=== PATIENT | female | born 1995 | race Two or more races ===

== ENCOUNTER 2019-10-08 13:56 | Observation (INO) ==
[2019-10-08] MEDS ORDERED: ONDANSETRON INJ 2 MG/ML 2 ML VIAL IV STA (14:32)
--- NOTE | 2019-10-08 14:36 | Emergency Department Note ---
History of Present Illness General Chief complaint: Abdominal Pain Stated complaint: ABD PAIN Time Seen by Provider: 10/08/19 14:28 History of Present Illness Maximum Pain Intensity: 6 The patient is a 24-year-old female who presented to the emergency department for an evaluation of abdominal pain. The patient started having abdominal pain earlier in the day. She states that she thought she needed to eat so she had a banana. She started having nausea and vomiting. The patient complains of diffuse abdominal pain which is worse on the right. She went to [facility] but was then sent to the emergency department for further evaluation for possible appendicitis. The patient did not take medication for pain prior to arrival. She denies having any back pain. She denies having any dysuria or frequency. Her last menstrual period was 3 weeks ago. Patient states that that was normal time for her. She denies having any chest pain or fever. She has no diarrhea. She denies having any sick contacts or travel recently. Home Medications Home Medications Medication Instructions Recorded Confirmed Type drospirenone-ethinyl estradiol 1 tab PO DAILY 10/08/19 10/08/19 History [Hari (28)] Allergies Allergy/AdvReac Type Severity Reaction Status Date / Time No Known Allergies Allergy Unverified 10/08/19 15:50 Past Med/Surg History Medical History No significant past medical history Surgical History No history of previous surgery Social History Feels Safe at Home: Yes Smoking Status: Never smoker Do You Dip or Chew Tobacco: No ; Hx Alcohol Use: Yes Hx Substance Use: No Review of Systems See HPI for pertinent positives & negatives. and A total of 10 systems reviewed and were otherwise negative Physical Exam Vital Signs Vital Signs - 24 hr 10/08/19 14:13 10/08/19 14:32 10/08/19 15:12 Temperature 36.7 C Temperature Source Oral Pulse Rate 85 91 H Pulse Rate [Apical] Pulse Rate from SpO2 Sensor 89 Respiratory Rate 20 15 Respiratory Effort / Characteristics Respiratory Depth Respiratory Pattern Blood Pressure 112/69 118/83 Blood Pressure [Left Arm] Blood Pressure Mean 83 89 Blood Pressure Mean [Left Arm] Pulse Oximetry 100 100 Oxygen Delivery Method Room Air Room Air Sepsis Recent Fever Within 48 Hours No Sepsis New/Unexplained Change in Mental Status No Sepsis Action Taken by Nursing No Action Required 10/08/19 15:30 10/08/19 16:00 10/08/19 16:11 Temperature Temperature Source Pulse Rate 94 H 108 H Pulse Rate [Apical] 101 H Pulse Rate from SpO2 Sensor 94 H 109 H Respiratory Rate 18 14 18 Respiratory Effort / Characteristics Non-Labored Spontaneous Respiratory Depth Normal Respiratory Pattern Regular Blood Pressure 113/72 120/68 Blood Pressure [Left Arm] 120/68 Blood Pressure Mean 89 91 Blood Pressure Mean [Left Arm] 85 Pulse Oximetry 100 100 99 Oxygen Delivery Method Room Air Room Air Sepsis Recent Fever Within 48 Hours Sepsis New/Unexplained Change in Mental Status Sepsis Action Taken by Nursing 10/08/19 16:30 10/08/19 17:00 10/08/19 17:23 Temperature Temperature Source Pulse Rate 92 H 99 H 96 H Pulse Rate [Apical] Pulse Rate from SpO2 Sensor 91 H 100 H 102 H Respiratory Rate 20 21 22 Respiratory Effort / Characteristics Respiratory Depth Respiratory Pattern Blood Pressure 125/83 104/72 127/71 Blood Pressure [Left Arm] Blood Pressure Mean 95 81 81 Blood Pressure Mean [Left Arm] Pulse Oximetry 100 99 100 Oxygen Delivery Method Room Air Room Air Room Air Sepsis Recent Fever Within 48 Hours Sepsis New/Unexplained Change in Mental Status Sepsis Action Taken by Nursing 10/08/19 17:30 10/08/19 18:00 10/08/19 18:30 Temperature Temperature Source Pulse Rate 104 H 96 H 104 H Pulse Rate [Apical] Pulse Rate from SpO2 Sensor 104 H 95 H 107 H Respiratory Rate 19 13 16 Respiratory Effort / Characteristics Respiratory Depth Respiratory Pattern Blood Pressure 116/89 119/79 126/83 Blood Pressure [Left Arm] Blood Pressure Mean 94 101 101 Blood Pressure Mean [Left Arm] Pulse Oximetry 99 100 100 Oxygen Delivery Method Room Air Room Air Room Air Sepsis Recent Fever Within 48 Hours Sepsis New/Unexplained Change in Mental Status Sepsis Action Taken by Nursing 10/08/19 19:00 Temperature Temperature Source Pulse Rate 99 H Pulse Rate [Apical] Pulse Rate from SpO2 Sensor 99 H Respiratory Rate 20 Respiratory Effort / Characteristics Respiratory Depth Respiratory Pattern Blood Pressure 128/85 Blood Pressure [Left Arm] Blood Pressure Mean 101 Blood Pressure Mean [Left Arm] Pulse Oximetry 99 Oxygen Delivery Method Room Air Sepsis Recent Fever Within 48 Hours Sepsis New/Unexplained Change in Mental Status Sepsis Action Taken by Nursing GENERAL: Patient is awake alert in no acute distress patient is resting comfortably and showing no signs of anxiety EYES: The conjunctivae are clear. The pupils are round and reactive. EARS, NOSE, MOUTH AND THROAT: The nose is without any evidence of any deformity. Mucous membranes are moist. Tongue is midline. NECK: The neck is nontender and supple. RESPIRATORY: Normal respiratory effort is noted there is no evidence of wheezing rhonchi or rales CARDIOVASCULAR: Regular rate and rhythm noted there no murmurs rubs or gallops normal S1 normal S2. GASTROINTESTINAL: The abdomen is soft and nondistended. There is right lower quadrant tenderness to palpation but no guarding or rigidity. MUSCULOSKELETAL/EXTREMITIES: There is no evidence of gross deformity full range of motion is noted in the hips and shoulders. SKIN: There is no obvious evidence of any rash. There are no petechiae, pallor or cyanosis noted. NEUROLOGIC: Patient is awake alert and oriented x3. Course Course 1835: I discussed this case with Dr. Holt the on-call general surgeon. He has agreed to evaluate the patient in the emergency department for further management and disposition. Administered Medications Ioversol (Optiray 320 100ml) 93 ml IV ONCE PRN PRN Reason: Interaction Checking Stop: 10/12/19 17:18 Last Admin: 10/08/19 17:19 Dose: 93 ml Documented by: [id number] Discontinued Medications Bupivacaine HCl (Marcaine 0.5% Mpf) Confirm Administered Dose 30 ml .ROUTE .STK- MED ONE Stop: 10/08/19 18:30 Last Admin: 10/08/19 20:02 Dose: 15 ml Documented by: [id number] Cefazolin Sodium (Ancef) Confirm Administered Dose 1,000 mg .ROUTE .STK-MED ONE Stop: 10/08/19 18:30 Last Admin: 10/08/19 20:12 Dose: 1,000 mg Documented by: [id number] Heparin Sodium (Porcine) (Heparin Iv Bolus (News Clerk Use Only)) Confirm Administered Dose 10,000 units .ROUTE .STK-MED ONE Stop: 10/08/19 18:30 Last Admin: 10/08/19 20:12 Dose: 5,000 units Documented by: [id number] Sodium Chloride (Nss 1000ml) 1,000 mls @ 999 mls/hr IV .[id number] GERALDO Stop: 10/08/19 15:45 Last Infusion: 10/08/19 15:55 Dose: 0 mls/hr Documented by: [id number] Admin: 10/08/19 14:54 Dose: 999 mls/hr Documented by: [id number] Ondansetron HCl (Zofran) 4 mg IV NOW STA Stop: 10/08/19 14:33 Last Admin: 10/08/19 16:41 Dose: Not Given Documented by: [id number] Medical Decision Making Differential Diagnosis Etiologies such as appendicitis, diverticulitis, obstruction, inflammatory bowel disease, renal colic, PUD, biliary pathology, pancreatitis, mesenteric ischemia, aortic pathology, infections, genitourinary, UTI, perforated viscus, as well as others were entertained. Medical Records Attestation: I reviewed the patient's medical records. Home Medications Current Medication List: was personally reviewed by me Laboratory Data Attestation: I reviewed the patient's lab results. Result diagrams: 10/08/19 14:40 10/08/19 14:40 Lab Results 10/08/19 10/08/19 10/08/19 Range/Units 14:40 14:40 14:40 WBC 20.14 H (4.8-10.8) K/uL RBC 4.74 (4.2-5.4) M/uL Hgb 13.5 (12.0-16.0) g/dL Hct 39.5 (37-47) % MCV 83.3 (80-100) fL MCH 28.5 (25-34) pg MCHC 34.2 (32-36) g/dL RDW Std Deviation 36.4 (36.4-46.3) fL RDW Coeff of An 11.9 (11.5-14.5) % Plt Count 294 (130-400) K/uL MPV 10.5 H (7.4-10.4) fL Immature Gran % (Auto) 0.3 % Neut % (Auto) 91.7 % Lymph % (Auto) 4.2 % [place] % (Auto) 3.6 % Eos % (Auto) 0.0 % Baso % (Auto) 0.2 % Immature Gran # (Auto) 0.06 H (0.00-0.02) K/uL Neut # (Auto) 18.45 H (1.4-6.5) K/uL Lymph # (Auto) 0.85 L (1.2-3.4) K/uL [place] # (Auto) 0.73 H (0.11-0.59) K/uL Eos # (Auto) 0.01 (0-0.5) K/uL Baso # (Auto) 0.04 (0-0.2) K/uL Sodium 136 (136-145) mmol/L Potassium 3.6 (3.5-5.1) mmol/L Chloride 105 (98-107) mmol/L Carbon Dioxide 23 (21-32) mmol/L Anion Gap 8.0 (3-11) BUN 9 (7-18) mg/dl Creatinine 0.95 (0.6-1.2) mg/dl Est Cr Clr Drug Dosing 75.5 ml/min Est GFR ( Amer) 97.8 Est GFR (Non-Af Amer) 84.4 BUN/Creatinine Ratio 10.0 (10-20) Glucose 95 (70-99) mg/dl Calcium 9.0 (8.5-10.1) mg/dl Total Bilirubin 0.9 (0.2-1) mg/dl AST 14 L (15-37) U/L ALT 17 (12-78) U/L Alkaline Phosphatase 64 (45-117) U/L Total Protein 8.1 (6.4-8.2) gm/dl Albumin 3.5 (3.4-5.0) gm/dl Globulin 4.6 H (2.5-4.0) gm/dl Albumin/Globulin Ratio 0.8 L (0.9-2) Lipase 100 (73-393) U/L HCG, Qual Negative (Negative) Urine Color Urine Appearance (Clear) Urine pH (4.5-7.5) Ur Specific [place] (1.000-1.030) Urine Protein (Negative) Urine Glucose (UA) (Negative) Urine Ketones (Negative) Urine Blood (Negative) Urine Nitrite (Negative) Urine Bilirubin (Negative) Urine Urobilinogen (Negative) Ur Leukocyte Esterase (Negative) 10/08/19 Range/Units 16:10 WBC (4.8-10.8) K/uL RBC (4.2-5.4) M/uL Hgb (12.0-16.0) g/dL Hct (37-47) % MCV (80-100) fL MCH (25-34) pg MCHC (32-36) g/dL RDW Std Deviation (36.4-46.3) fL RDW Coeff of An (11.5-14.5) % Plt Count (130-400) K/uL MPV (7.4-10.4) fL Immature Gran % (Auto) % Neut % (Auto) % Lymph % (Auto) % [place] % (Auto) % Eos % (Auto) % Baso % (Auto) % Immature Gran # (Auto) (0.00-0.02) K/uL Neut # (Auto) (1.4-6.5) K/uL Lymph # (Auto) (1.2-3.4) K/uL [place] # (Auto) (0.11-0.59) K/uL Eos # (Auto) (0-0.5) K/uL Baso # (Auto) (0-0.2) K/uL Sodium (136-145) mmol/L Potassium (3.5-5.1) mmol/L Chloride (98-107) mmol/L Carbon Dioxide (21-32) mmol/L Anion Gap (3-11) BUN (7-18) mg/dl Creatinine (0.6-1.2) mg/dl Est Cr Clr Drug Dosing ml/min Est GFR ( Amer) Est GFR (Non-Af Amer) BUN/Creatinine Ratio (10-20) Glucose (70-99) mg/dl Calcium (8.5-10.1) mg/dl Total Bilirubin (0.2-1) mg/dl AST (15-37) U/L ALT (12-78) U/L Alkaline Phosphatase (45-117) U/L Total Protein (6.4-8.2) gm/dl Albumin (3.4-5.0) gm/dl Globulin (2.5-4.0) gm/dl Albumin/Globulin Ratio (0.9-2) Lipase (73-393) U/L HCG, Qual (Negative) Urine Color Yellow Urine Appearance Clear (Clear) Urine pH 6.0 (4.5-7.5) Ur Specific [place] 1.006 (1.000-1.030) Urine Protein Negative (Negative) Urine Glucose (UA) Negative (Negative) Urine Ketones Trace H (Negative) Urine Blood Negative (Negative) Urine Nitrite Negative (Negative) Urine Bilirubin Negative (Negative) Urine Urobilinogen Negative (Negative) Ur Leukocyte Esterase Negative (Negative) Imaging Data Radiologist's Impression: CT abd pelvis oral and IV con CLINICAL HISTORY: Abdominal pain COMPARISON STUDY: None. TECHNIQUE: Patient was scanned following administration of dilute oral contrast, and in a dynamic helical fashion during intravenous administration of 93 cc of Optiray 320. A dose lowering technique was utilized adhering to the principles of ALARA. CT DOSE: 323.59 mGy.cm FINDINGS: Lower chest: The heart is normal in size and configuration, without pericardial effusion. The lung bases and pleural spaces are clear. Liver: The contrast-enhanced liver is normal in size, contour, and attenuation. There is no intrahepatic biliary ductal dilatation. The hepatic veins and portal veins are patent. Gallbladder: Unremarkable. Spleen: Normal in size and attenuation. Pancreas: Unremarkable. Adrenal glands: Unremarkable. Kidneys: There is symmetric renal cortical enhancement. The kidneys are normal in size without hydronephrosis. Bowel: There are no transition zones to indicate bowel obstruction. There is no evidence of acute diverticulitis. There is a mildly dilated fluid-filled appendix measuring 8 mm. This did not fill with contrast. In the setting of right lower quadrant abdominal pain, the findings are consistent with an early acute appendicitis. Peritoneum: There is no free intraperitoneal air. There is trace free pelvic fluid likely physiologic. Vasculature: The abdominal aorta is normal in course and caliber. Adenopathy: None. Pelvic viscera: The bladder, and pelvic viscera are unremarkable. Skeletal structures: No destructive osseous lesions are seen. IMPRESSION: 1. Mildly dilated fluid-filled appendix measuring 8 mm in diameter. This does not fill with contrast. Only equivocal periappendiceal inflammatory changes are visualized. Nevertheless in the setting of right lower quadrant pain, the findings are suspicious for an early acute appendicitis. Clinical correlation will be required.. 2. No evidence of bowel obstruction. No evidence of free air ACT 112: Negative or not required by law. Electronically signed by: Tray Smith M.D. 10/08/2019 5:29 PM Dictated: 10/08/191719 Transcribed: 10/08/191727 Blood Pressure Blood Pressure Findings: Normal blood pressure MDM Narrative The patient is a 24-year-old female who presented to the emergency department for diffuse abdominal pain. The patient states that she started having a bdominal pain earlier today which then started to migrate to the right lower quadrant. The patient was seen at [facility] and then sent to the emergency department for possible appendicitis. The patient was treated with IV fluids in the emergency department. She was reevaluated multiple times. I discussed the patient's laboratory and radiographic studies with her. Given her findings on CAT scan I also discussed her case with the on-call general surgeon. They have agreed to evaluate the patient in the emergency department for further management and disposition. The patient is aware of the diagnosis as well as the possible need for surgical management. Impression & Plan Appendicitis, Abdominal pain Discharge Plan Visit Data *Final* Discharge Date/Time: 10/08/19 19:10 Chief Complaint: Abdominal Pain Stated Complaint: ABD PAIN ED Provider: Josef Sheikh Discharge Problem: Appendicitis, Abdominal pain Patient Disposition: Being Evaluated by Surgeon Condition: Good Discharge Instructions Interventions: ED Discharge Assessment Last Done: 10/08/19 19:10
[2019-10-08] MEDS ORDERED: SODIUM CHLORIDE 0.9% 1000ML 1,000 ML IV SCH (14:45)
[2019-10-08 14:52] LABS: Basophils # (auto) 0.04 K/uL (0-0.2); Basophils % (auto) 0.2 %; Eosinophils # (auto) 0.01 K/uL (0-0.5); Hematocrit (blood only) 39.5 % (37-47); Hemoglobin 13.5 g/dL (12.0-16.0); Immature Granulocytes # (auto) 0.06 K/uL (0.00-0.02); Immature Granulocytes % (auto) 0.3 %; Lymphocytes # (auto) 0.85 K/uL (1.2-3.4); Lymphocytes % (auto) 4.2 %; Mean Corpuscular Hemoglobin 28.5 pg (25-34); Mean Corpuscular Hgb Conc 34.2 g/dL (32-36); Mean Corpuscular Volume 83.3 fL (80-100); Mean Platelet Volume 10.5 fL (7.4-10.4); Monocytes # (auto) 0.73 K/uL (0.11-0.59); Monocytes % (auto) 3.6 %; Neutrophils # (auto) 18.45 K/uL (1.4-6.5); Neutrophils % (auto) 91.7 %; Platelet Count 294 K/uL (130-400); RDW Coefficient of Variation 11.9 % (11.5-14.5); RDW Standard Deviation 36.4 fL (36.4-46.3); Red Blood Count 4.74 M/uL (4.2-5.4); White Blood Count 20.14 K/uL (4.8-10.8)
[2019-10-08 15:08] LABS: Albumin Level 3.5 gm/dl (3.4-5.0); Creatinine Clr Calc Pharmacy 75.5 ml/min; Est GFR (African American) 97.8; Est GFR (Non-African American) 84.4; Potassium 3.6 mmol/L (3.5-5.1)
[2019-10-08 15:10] LABS: Pregnancy Test, Serum Negative (Negative)
[2019-10-08 15:11] LABS: Albumin Globulin Ratio 0.8 (0.9-2); Bilirubin,Total 0.9 mg/dl (0.2-1); Globulin 4.6 gm/dl (2.5-4.0); Total Protein 8.1 gm/dl (6.4-8.2)
[2019-10-08 16:27] LABS: Bilirubin Urine Negative (Negative); Blood Urine Negative (Negative); Color Urine Yellow; Glucose Urine UA Negative (Negative); Ketones Urine Trace (Negative); Leukocyte Esterase Urine Negative (Negative); Nitrite Urine Negative (Negative); Protein Urine Negative (Negative); Specific Gravity Urine 1.006 (1.000-1.030); Urobilinogen Urine Negative (Negative)
[2019-10-08 16:36] LABS: Appearance Urine Clear (Clear)
[2019-10-08] MEDS ORDERED: IOVERSOL 100ml IV PRN (17:19)
--- NOTE | 2019-10-08 17:30 | CT Scan Report ---
CT abd pelvis oral and IV con CLINICAL HISTORY: Abdominal pain COMPARISON STUDY: None. TECHNIQUE: Patient was scanned following administration of dilute oral contrast, and in a dynamic hel ical fashion during intravenous administration of 93 cc of Optiray 320. A dose lowering technique wa s utilized adhering to the principles of ALARA. CT DOSE: 323.59 mGy.cm FINDINGS: Lower chest: The heart is normal in size and configuration, without pericardial effusion. The lung ba ses and pleural spaces are clear. Liver: The contrast-enhanced liver is normal in size, contour, and attenuation. There is no intrahepa tic biliary ductal dilatation. The hepatic veins and portal veins are patent. Gallbladder: Unremarkable. Spleen: Normal in size and attenuation. Pancreas: Unremarkable. Adrenal glands: Unremarkable. Kidneys: There is symmetric renal cortical enhancement. The kidneys are normal in size without hydron ephrosis. Bowel: There are no transition zones to indicate bowel obstruction. There is no evidence of acute div erticulitis. There is a mildly dilated fluid-filled appendix measuring 8 mm. This did not fill with c ontrast. In the setting of right lower quadrant abdominal pain, the findings are consistent with an e diamond acute appendicitis. Peritoneum: There is no free intraperitoneal air. There is trace free pelvic fluid likely physiologic . Vasculature: The abdominal aorta is normal in course and caliber. Adenopathy: None. Pelvic viscera: The bladder, and pelvic viscera are unremarkable. Skeletal structures: No destructive osseous lesions are seen. IMPRESSION: 1. Mildly dilated fluid-filled appendix measuring 8 mm in diameter. This does not fill with contrast. Only equivocal periappendiceal inflammatory changes are visualized. Nevertheless in the setting of r ight lower quadrant pain, the findings are suspicious for an early acute appendicitis. Clinical corre lation will be required.. 2. No evidence of bowel obstruction. No evidence of free air ACT 112: Negative or not required by law. Electronically signed by: Tray Smith M.D. 10/08/2019 5:29 PM
--- NOTE | 2019-10-08 18:07 | History & Physical Report ---
Date of Service October 08, 2019 Assessment & Plan (1) Appendicitis: This patient's history, exam, labs and CT scan of which I reviewed the report and the images is consistent with appendicitis. We discussed surgery with laparoscopic appendectomy with possible need to convert to an open proce dure versus treatment with antibiotics. She would like to proceed to surgery. I explained the possible complications of the procedures and answered her questions and she has signed a consent form. Present on Admission?: Yes History of Present Illness Chief Complaint: Abdominal pain with nausea and vomiting Primary Care Provider: [facility] This is a 25-year-old female who presented to the emergency room with a complaint of abdominal pain. She states that it began this morning. The complaint of pain is more diffuse although now it is more towards the right side. She had nausea and has had 2 episodes of vomiting without hematemesis. She has no fever or chills. Her bowels are moving without diarrhea or constipation she denies melena and hematochezia. She has no dysuria or hemat uria. The pain does not radiate. It is not exacerbated by motion. She is never had pain with this before. Allergies Allergy/AdvReac Type Severity Reaction Status Date / Time No Known Allergies Allergy Unverified 10/08/19 15:50 Home Medications Home Medications Medication Instructions Recorded Confirmed Type drospirenone-ethinyl estradiol 1 tab PO DAILY 10/08/19 10/08/19 History [Hari (28)] Past Med/Surg History Medical History (Updated 10/08/19 @ 18:08 by Humble Holt MD) No significant past medical history Surgical History (Updated 10/08/19 @ 18:06 by Humble Holt MD) No history of previous surgery Social History (Updated 10/08/19 @ 14:34 by Josef Sheikh DO) Feels Safe at Home: Yes Smoking Status: Never smoker Hx Alcohol Use: Yes Hx Substance Use: No Review of Systems Review of Systems: All systems reviewed & are unremarkable except as noted in HPI & below Physical Exam Constitutional: no acute distress Neck: Thyroid: normal thyroid Respiratory: normal respiratory effort, lungs clear to auscultation Cardiovascular: Rate/Rhythm: regular rate and regular rhythm Gastrointestinal (Abdomen): Inspection/Auscultation: normal bowel sounds; abdomen not distended Percussion/Palpation: + abdomen tender (Right lower quadrant that is moderate to moderate palpation) and abdomen soft Skin: no rashes, warm and dry Lymphatic: no cervical lymphadenopathy Results & Data Vital Signs (Past 12 Hours) Vital Signs Temp Pulse Pulse Resp BP BP Pulse Ox 10/08/19 17:30 104 H 19 116/89 99 10/08/19 17:23 96 H 22 127/71 100 10/08/19 17:00 99 H 21 104/72 99 10/08/19 16:30 92 H 20 125/83 100 10/08/19 16:11 101 H 18 120/68 99 10/08/19 16:00 108 H 14 120/68 100 10/08/19 15:30 94 H 18 113/72 100 10/08/19 15:12 91 H 15 118/83 100 10/08/19 14:13 36.7 C 85 20 112/69 100 Laboratory Results 10/08/19 10/08/19 10/08/19 Range/Units 16:10 14:40 14:40 WBC (4.8-10.8) K/uL RBC (4.2-5.4) M/uL Hgb (12.0-16.0) g/dL Hct (37-47) % MCV (80-100) fL MCH (25-34) pg MCHC (32-36) g/dL RDW Std Deviation (36.4-46.3) fL RDW Coeff of An (11.5-14.5) % Plt Count (130-400) K/uL MPV (7.4-10.4) fL Immature Gran % (Auto) % Neut % (Auto) % Lymph % (Auto) % Moca % (Auto) % Eos % (Auto) % Baso % (Auto) % Immature Gran # (Auto) (0.00-0.02) K/uL Neut # (Auto) (1.4-6.5) K/uL Lymph # (Auto) (1.2-3.4) K/uL Moca # (Auto) (0.11-0.59) K/uL Eos # (Auto) (0-0.5) K/uL Baso # (Auto) (0-0.2) K/uL Sodium 136 (136-145) mmol/L Potassium 3.6 (3.5-5.1) mmol/L Chloride 105 (98-107) mmol/L Carbon Dioxide 23 (21-32) mmol/L Anion Gap 8.0 (3-11) BUN 9 (7-18) mg/dl Creatinine 0.95 (0.6-1.2) mg/dl Est Cr Clr Drug Dosing 75.5 ml/min Est GFR ( Amer) 97.8 Est GFR (Non-Af Amer) 84.4 BUN/Creatinine Ratio 10.0 (10-20) Glucose 95 (70-99) mg/dl Calcium 9.0 (8.5-10.1) mg/dl Total Bilirubin 0.9 (0.2-1) mg/dl AST 14 L (15-37) U/L ALT 17 (12-78) U/L Alkaline Phosphatase 64 (45-117) U/L Total Protein 8.1 (6.4-8.2) gm/dl Albumin 3.5 (3.4-5.0) gm/dl Globulin 4.6 H (2.5-4.0) gm/dl Albumin/Globulin Ratio 0.8 L (0.9-2) Lipase 100 (73-393) U/L HCG, Qual Negative (Negative) Urine Color Yellow Urine Appearance Clear (Clear) Urine pH 6.0 (4.5-7.5) Ur Specific [place] 1.006 (1.000-1.030) Urine Protein Negative (Negative) Urine Glucose (UA) Negative (Negative) Urine Ketones Trace H (Negative) Urine Blood Negative (Negative) Urine Nitrite Negative (Negative) Urine Bilirubin Negative (Negative) Urine Urobilinogen Negative (Negative) Ur Leukocyte Esterase Negative (Negative) 10/08/19 Range/Units 14:40 WBC 20.14 H (4.8-10.8) K/uL RBC 4.74 (4.2-5.4) M/uL Hgb 13.5 (12.0-16.0) g/dL Hct 39.5 (37-47) % MCV 83.3 (80-100) fL MCH 28.5 (25-34) pg MCHC 34.2 (32-36) g/dL RDW Std Deviation 36.4 (36.4-46.3) fL RDW Coeff of An 11.9 (11.5-14.5) % Plt Count 294 (130-400) K/uL MPV 10.5 H (7.4-10.4) fL Immature Gran % (Auto) 0.3 % Neut % (Auto) 91.7 % Lymph % (Auto) 4.2 % Moca % (Auto) 3.6 % Eos % (Auto) 0.0 % Baso % (Auto) 0.2 % Immature Gran # (Auto) 0.06 H (0.00-0.02) K/uL Neut # (Auto) 18.45 H (1.4-6.5) K/uL Lymph # (Auto) 0.85 L (1.2-3.4) K/uL Moca # (Auto) 0.73 H (0.11-0.59) K/uL Eos # (Auto) 0.01 (0-0.5) K/uL Baso # (Auto) 0.04 (0-0.2) K/uL Sodium (136-145) mmol/L Potassium (3.5-5.1) mmol/L Chloride (98-107) mmol/L Carbon Dioxide (21-32) mmol/L Anion Gap (3-11) BUN (7-18) mg/dl Creatinine (0.6-1.2) mg/dl Est Cr Clr Drug Dosing ml/min Est GFR ( Amer) Est GFR (Non-Af Amer) BUN/Creatinine Ratio (10-20) Glucose (70-99) mg/dl Calcium (8.5-10.1) mg/dl Total Bilirubin (0.2-1) mg/dl AST (15-37) U/L ALT (12-78) U/L Alkaline Phosphatase (45-117) U/L Total Protein (6.4-8.2) gm/dl Albumin (3.4-5.0) gm/dl Globulin (2.5-4.0) gm/dl Albumin/Globulin Ratio (0.9-2) Lipase (73-393) U/L HCG, Qual (Negative) Urine Color Urine Appearance (Clear) Urine pH (4.5-7.5) Ur Specific [place] (1.000-1.030) Urine Protein (Negative) Urine Glucose (UA) (Negative) Urine Ketones (Negative) Urine Blood (Negative) Urine Nitrite (Negative) Urine Bilirubin (Negative) Urine Urobilinogen (Negative) Ur Leukocyte Esterase (Negative) Diagnostic Findings CT abd pelvis oral and IV con CLINICAL HISTORY: Abdominal pain COMPARISON STUDY: None. TECHNIQUE: Patient was scanned following administration of dilute oral contrast, and in a dynamic helical fashion during intravenous administration of 93 cc of Optiray 320. A dose lowering technique was utilized adhering to the principles of ALARA. CT DOSE: 323.59 mGy.cm FINDINGS: Lower chest: The heart is normal in size and configuration, without pericardial effusion. The lung bases and pleural spaces are clear. Liver: The contrast-enhanced liver is normal in size, contour, and attenuation. There is no intrahepatic biliary ductal dilatation. The hepatic veins and portal veins are patent. Gallbladder: Unremarkable. Spleen: Normal in size and attenuation. Pancreas: Unremarkable. Adrenal glands: Unremarkable. Kidneys: There is symmetric renal cortical enhancement. The kidneys are normal in size without hydronephrosis. Bowel: There are no transition zones to indicate bowel obstruction. There is no evidence of acute diverticulitis. There is a mildly dilated fluid-filled appendix measuring 8 mm. This did not fill with contrast. In the setting of right lower quadrant abdominal pain, the findings are consistent with an early acute appendicitis. Peritoneum: There is no free intraperitoneal air. There is trace free pelvic fluid likely physiologic. Vasculature: The abdominal aorta is normal in course and caliber. Adenopathy: None. Pelvic viscera: The bladder, and pelvic viscera are unremarkable. Skeletal structures: No destructive osseous lesions are seen. IMPRESSION: 1. Mildly dilated fluid-filled appendix measuring 8 mm in diameter. This does not fill with contrast. Only equivocal periappendiceal inflammatory changes are visualized. Nevertheless in the setting of right lower quadrant pain, the findings are suspicious for an early acute appendicitis. Clinical correlation will be required.. 2. No evidence of bowel obstruction. No evidence of free air
[2019-10-08] MEDS ORDERED: CEFAZOLIN 250 MG/ML 1 GM VIAL ONE ×2 (18:29→20:01)
[2019-10-08] MEDS ORDERED: HEPARIN (PORCINE) 1000 UNIT/ML 10 ML (CATH LAB USE ONLY) ONE (18:29)
[2019-10-08] MEDS ORDERED: BUPIVACAINE 0.5 % 5 MG/1 ML MPF 30ML VIAL ONE (18:29)
[2019-10-08] MEDS ORDERED: NEOSTIGMINE METHYLSULFATE 5 MG/5 ML SYR ONE (18:45)
[2019-10-08] MEDS ORDERED: GLYCOPYRROLATE 0.2 MG/ML VIAL ONE (18:45)
[2019-10-08] MEDS ORDERED: PROPOFOL IV EMULSION 10 MG/ML 20 ML VIAL IV ONE (18:45)
[2019-10-08] MEDS ORDERED: ROCURONIUM BROMIDE 10 MG/ML 5 ML VIAL ONE (18:45)
[2019-10-08] MEDS ORDERED: fentaNYL citrate 100 MCG/2 ML VIAL ONE ×2 (18:45→21:01)
[2019-10-08] MEDS ORDERED: DEXAMETHASONE SOD INJ 4 MG/ML VIAL ONE (18:45)
[2019-10-08] MEDS ORDERED: ONDANSETRON INJ 2 MG/ML 2 ML VIAL ONE (18:45)
[2019-10-08] MEDS ORDERED: SUCCINYLCHOLINE CHLORIDE 20 MG/ML 10 ML VIAL ONE (18:45)
[2019-10-08] MEDS ORDERED: MIDAZOLAM HCL 1 MG/ML 2ML VIAL ONE (18:46)
[2019-10-08] MEDS ORDERED: HYDROmorphone INJ 1 MG/ML SYRINGE IV PRN (18:56)
[2019-10-08] MEDS ORDERED: ATROPINE SULFATE 0.1 MG/ML 10ML SYR IV PRN (18:56)
[2019-10-08] MEDS ORDERED: ONDANSETRON INJ 2 MG/ML 2 ML VIAL IV PRN ×2 (18:56→21:59)
[2019-10-08] MEDS ORDERED: ePHEDrine sulfate 50 MG/ML AMP IV PRN (18:56)
[2019-10-08] MEDS ORDERED: fentaNYL citrate 100 MCG/2 ML VIAL IV PRN (18:56)
--- NOTE | 2019-10-08 18:58 | Anesthesiology Consultation ---
Date of Service October 08, 2019 Assessment & Plan (1) Encounter for pre-operative examination: Chart Review Chart Review: Acceptable Risk for Surgery and Patient NOT seen in Pre Admission Testing Consults Requested none History Surgery Operation Date: 10/08/19 18:05 Proposed Procedures p Laparoscopic Appendectomy - Humble Holt MD Height/Weight Height: 5 ft 1 in Weight: 58.2 kg Allergies Allergy/AdvReac Type Severity Reaction Status Date / Time No Known Allergies Allergy Unverified 10/08/19 15:50 Medications Home Medications Medication Instructions Recorded Confirmed Last Taken drospirenone-ethinyl estradiol 1 tab PO DAILY 10/08/19 10/08/19 Unknown [Hari (28)] Active Medications Generic Name Dose Route Start Last Admin Trade Name Freq PRN Reason Stop Dose Admin Ioversol 93 ml 10/08/19 17:19 10/08/19 17:19 Optiray 320 100ml IV 10/12/19 17:18 93 ml ONCE PRN Administration Interaction Checking Past Medical History Medical History No significant past medical history Exercise / Class Metabolic Activity 1 > 8 Run/Swim/Ski/Tennis Past Surgical History Surgical History No history of previous surgery Past Anesthesia History No Hx of Anesthesia Complications and No Family Hx of Anesthesia Complications History of PONV No Hx of PONV and No Hx of Motion Sickness Social History Smoking Status: Never smoker Do You Dip or Chew Tobacco: No Hx Alcohol Use: Yes Hx Substance Use: No Physical Exam Vital Signs Last Vital Signs Temp 36.7 C 10/08/19 14:13 Pulse 99 H 10/08/19 19:00 Resp 20 10/08/19 19:00 BP 128/85 10/08/19 19:00 Pulse Ox 99 10/08/19 19:00 Testing Laboratory Results 10/08/19 14:40 10/08/19 14:40 Urine Color Yellow 10/08/19 16:10 Urine Appearance Clear (Clear) 10/08/19 16:10 Urine pH 6.0 (4.5-7.5) 10/08/19 16:10 Ur Specific [place] 1.006 (1.000-1.030) 10/08/19 16:10 Urine Protein Negative (Negative) 10/08/19 16:10 Urine Glucose (UA) Negative (Negative) 10/08/19 16:10 Urine Ketones Trace (Negative) H 10/08/19 16:10 Urine Nitrite Negative (Negative) 10/08/19 16:10 Ur Leukocyte Esterase Negative (Negative) 10/08/19 16:10
[2019-10-08] MEDS ORDERED: CEFAZOLIN 2000MG 2,000 MG/15 ML SYR IV ONE (20:14)
--- NOTE | 2019-10-08 20:50 | Post Operative Brief Note ---
Immediate Post Op Note v1 Date of Surgery October 08, 2019 Pre & Post Diagnosis Operation Date: 10/08/19 18:05 Pre-Op Diagnosis: Appendicitis Post-Op Diagnosis: Appendicitis I identified the patient and participated in the time-out.: Yes Procedure Operation Date: 10/08/19 18:05 Actual Procedures p Laparoscopic Appendectomy(Not Applicable) - Humble Holt MD Surgeon Humble Holt MD Leadership Intern Katina Webster PA-C Estimated Blood Loss 5 Findings Consistent with Post-Op Diagnosis Specimens Appendix Anesthesia Type General Complications none
--- NOTE | 2019-10-08 21:15 | Anesthesiology Progress Note ---
Date of Service October 08, 2019 Anesthesia Post Procedure Vital Signs Vital Signs: Temp Pulse Pulse Resp BP BP Pulse Ox 10/08/19 21:05 82 19 115/76 100 10/08/19 20:58 36.2 C L 99 H 18 120/83 100 10/08/19 19:00 99 H 20 128/85 99 10/08/19 18:30 104 H 16 126/83 100 10/08/19 18:00 96 H 13 119/79 100 10/08/19 17:30 104 H 19 116/89 99 10/08/19 17:23 96 H 22 127/71 100 10/08/19 17:00 99 H 21 104/72 99 10/08/19 16:30 92 H 20 125/83 100 10/08/19 16:11 101 H 18 120/68 99 10/08/19 16:00 108 H 14 120/68 100 10/08/19 15:30 94 H 18 113/72 100 10/08/19 15:12 91 H 15 118/83 100 10/08/19 14:13 36.7 C 85 20 112/69 100 Pain Intensity Abdomen: Pain Intensity: 2 Transfer of Care Handoff Completed per policy Notes Mental Status: alert / awake / arousable and participated in evaluation Patient Amnestic to Procedure: Yes Nausea / Vomiting: adequately controlled Pain: adequately controlled Airway Patency, RR, SpO2: stable & adequate BP & HR: stable & adequate Hydration State: stable & adequate Anesthetic Complications: no major complications apparent and Pt Satisfied with anesthetic care
--- NOTE | 2019-10-08 21:34 | Operative Report (OR) ---
DATE OF OPERATION: 10/08/2019 PREOPERATIVE DIAGNOSIS: Acute appendicitis. POSTOPERATIVE DIAGNOSIS: Acute appendicitis. PROCEDURE: Laparoscopic appendectomy. SURGEON: Humble Holt MD FINDINGS: The appendix in its distal two-thirds to three-fourths was hyperemic, firm and dilated. The proximal 2 cm was normal. The cecum at the base of the appendix was normal. The visible bowel appeared normal. The uterus and ovaries appeared normal. TECHNIQUE: The patient was given a general anesthetic and the area was prepped and draped in the usual sterile fashion. The site for the incision below the umbilicus was chosen. The skin and subcutaneous tissue were anesthetized with 0.5% Marcaine without epinephrine. Skin incision was made, carried down through the subcutaneous tissue to the fascia which was grasped with 2 Genaro clamps and incised between. The peritoneum was identified, incised, and the introducer was placed bluntly. The abdomen was then insufflated to a pressure of 15 mmHg with carbon dioxide. The lower midline introducer site was chosen. The skin and subcutaneous tissue were anesthetized with 0.5% Marcaine. Skin incision was made, and the introducer was placed under direct vision. Traction was placed superomedially on the cecum and the appendix was easily identified. I then chose a site in the left lower quadrant for that introducer. The skin and subcutaneous tissue were anesthetized with 0.5% Marcaine. Skin incision was made, and the introducer was placed under direct vision. Traction was placed superiorly on the appendix. There were some adhesions of the base of the appendix laterally to the lateral abdominal wall and those were taken down, which allowed me to elevate the appendix. I was then able to establish a plane between the mesoappendix and the appendix and the mesoappendix was divided with the Endo-ALAN stapler. There was a small amount of oozing from the staple line and that was controlled with cautery. There was 1 additional area of mesoappendix that was away from the very base of the appendix that was divided with the Endo-ALAN as well. That allowed me to confirm that I was at the base of the appendix and the appendix was amputated using the Endo-ALAN. It was placed into an Endobag and brought out through the left lower quadrant introducer site with ease. That introducer was replaced and the staple line on the cecum had a small amount of oozing that was also controlled easily with cautery. The right lower quadrant was irrigated and the irrigation was removed and the staple lines were again inspected and there was no further oozing. Any irrigation that entered the right upper quadrant was removed and any irrigation that entered the pelvis was removed. It was then I visualized the uterus and ovaries. The gas was allowed to escape and introducers were removed. The fascia of the umbilical and left lower quadrant introducer sites was closed with interrupted 0 Vicryl and skin of all the incisions was closed with 4-0 Monocryl in either an interrupted or running subcuticular fashion. The skin was cleansed, dried, benzoin placed, Steri-Strips applied. Estimated blood loss was 5 mL Sponge, needle and instrument counts were correct prior to closure. The patient tolerated the surgical procedure without complication and was transferred to recovery. I attest to the content of the Intraoperative Record and any orders documented therein. Any exception s are noted below.
[2019-10-08] MEDS ORDERED: D5W AND 1/2NSS + 20MEQ KCL 20 MEQ/1,000 ML BAG IV SCH (21:59)
[2019-10-08] MEDS ORDERED: MoRPHine SULFATE 4 MG/ML 1 ML CARP\\VIAL IV PRN (21:59)
[2019-10-08] MEDS ORDERED: OXYCODONE/ACETAMINOPHEN 5mg/325mg TAB PO PRN (21:59)
--- NOTE | 2019-10-09 09:00 | Anesthesiology Progress Note ---
Date of Service October 09, 2019 Anesthesia Post Procedure Vital Signs Vital Signs: Temp Pulse Pulse Pulse Resp BP BP 10/09/19 07:19 37.5 C 81 16 103/62 10/09/19 03:19 37.7 C H 78 16 94/60 L 10/09/19 00:27 37.6 C H 95 H 16 105/68 10/08/19 23:45 36.9 C 89 16 106/69 10/08/19 22:47 37.7 C H 84 16 111/74 10/08/19 22:15 37.1 C 79 16 110/74 10/08/19 21:45 37.3 C 86 18 108/72 10/08/19 21:33 36.8 C 80 20 109/67 10/08/19 21:25 80 19 113/76 10/08/19 21:15 84 22 114/64 10/08/19 21:05 82 19 115/76 10/08/19 20:58 36.2 C L 99 H 18 120/83 10/08/19 19:00 99 H 20 128/85 10/08/19 18:30 104 H 16 126/83 10/08/19 18:00 96 H 13 119/79 10/08/19 17:30 104 H 19 116/89 10/08/19 17:23 96 H 22 127/71 10/08/19 17:00 99 H 21 104/72 10/08/19 16:30 92 H 20 125/83 10/08/19 16:11 101 H 18 120/68 10/08/19 16:00 108 H 14 120/68 10/08/19 15:30 94 H 18 113/72 10/08/19 15:12 91 H 15 118/83 10/08/19 14:13 36.7 C 85 20 112/69 Pulse Ox 10/09/19 07:19 98 10/09/19 03:19 93 10/09/19 00:27 99 10/08/19 23:45 95 10/08/19 22:47 98 10/08/19 22:15 100 10/08/19 21:45 100 10/08/19 21:33 100 10/08/19 21:25 100 10/08/19 21:15 100 10/08/19 21:05 100 10/08/19 20:58 100 10/08/19 19:00 99 10/08/19 18:30 100 10/08/19 18:00 100 10/08/19 17:30 99 10/08/19 17:23 100 10/08/19 17:00 99 10/08/19 16:30 100 10/08/19 16:11 99 10/08/19 16:00 100 10/08/19 15:30 100 10/08/19 15:12 100 10/08/19 14:13 100 Pain Intensity Abdomen: Pain Intensity: 1 Notes Mental Status: alert / awake / arousable and participated in evaluation Patient Amnestic to Procedure: Yes Nausea / Vomiting: adequately controlled Pain: adequately controlled Airway Patency, RR, SpO2: stable & adequate BP & HR: stable & adequate Hydration State: stable & adequate Anesthetic Complications: no major complications apparent
--- NOTE | 2019-10-09 09:27 | Surgery Progress Note ---
Date of Service October 09, 2019 Assessment & Plan (1) Appendicitis: POD # 1 s/p laparoscopic appendectomy vitals stable, afebrile postop pain minimal no n/v Plan: Discharge home today discharge instructions reviewed Rx Percocet sent to pharmacy 2 week f/u phone call visit Dr. Holt has seen and examined pt, agrees with above Subjective feeling good pain at incision sites walking tolerating clear liquids, hungry Physical Exam Constitutional: WD/WN, vitals as above no acute distress Gastrointestinal (Abdomen): Inspection/Auscultation: abdomen normal to inspection; abdomen not distended Percussion/Palpation: + abdomen tender (at incisions, appropriate postop) and abdomen soft; no guarding and abdomen not rigid Skin: no rashes, warm and dry + incision (covered with steri strips) Psychiatric: A+Ox3, euthymic affect Results & Data Vital Signs (Past 12 Hours) Vital Signs Temp Pulse Pulse Resp BP Pulse Ox 10/09/19 07:19 37.5 C 81 16 103/62 98 10/09/19 03:19 37.7 C H 78 16 94/60 L 93 10/09/19 00:27 37.6 C H 95 H 16 105/68 99 10/08/19 23:45 36.9 C 89 16 106/69 95 10/08/19 22:47 37.7 C H 84 16 111/74 98 10/08/19 22:15 37.1 C 79 16 110/74 100 10/08/19 21:45 37.3 C 86 18 108/72 100 10/08/19 21:33 36.8 C 80 20 109/67 100 (1) Appendicitis Acute appendicitis type: with localized peritonitis Appendicitis abscess pr esence: without abscess Appendicitis gangrene presence: without gangrene Appendicitis perforation presence: without perforation Appendicitis type: acute appendicitis Qualified Code(s): K35.30 - Acute appendicitis with localized peritonitis, without perforation or gangrene
--- NOTE | 2019-10-12 08:19 | Discharge Summary ---
Date of Service October 12, 2019 Admission HPI Per Admitting Provider This is a 25-year-old female who presented to the emergency room with a complaint of abdominal pain. She states that it began this morning. The complaint of pain is more diffuse although now it is more towards the right side. She had nausea and has had 2 episodes of vomiting without hematemesis. She has no fever or chills. Her bowels are moving without diarrhea or constipation she denies melena and hematochezia. She has no dysuria or hematuria. The pain does not radiate. It is not exacerbated by motion. She is never had pain with this before. Admission Exam Per Admitting Provider Constitutional: no acute distress Neck: Thyroid: normal thyroid Respiratory: normal respiratory effort, lungs clear to auscultation Cardiovascular: Rate/Rhythm: regular rate and regular rhythm Gastrointestinal (Abdomen): Inspection/Auscultation: normal bowel sounds; abdomen not distended Percussion/Palpation: + abdomen tender (Right lower quadrant that is moderate to moderate palpation) and abdomen soft Skin: no rashes, warm and dry Lymphatic: no cervical lymphadenopathy Principal Diagnosis Acute appendicitis Discharge Exam Constitutional no acute distress Respiratory normal respiratory effort, lungs clear to auscultation Gastrointestinal (Abdomen) Inspection/Auscultation: normal bowel sounds and + abdominal surgical incision (Clean, dry and intact); abdomen not distended Percussion/Palpation: + abdomen tender (Incisional only) and abdomen soft Discharge Data Allergies Allergy/AdvReac Type Severity Reaction Status Date / Time No Known Allergies Allergy Unverified 10/08/19 15:50 Consultations 10/08/19 17:42 Consult General Surgery Stat Procedures Performed Operation Date: 10/08/19 18:05 Actual Procedures p Laparoscopic Appendectomy(Not Applicable) - Humble Holt MD Ordered Studies 10/08/19 14:32 CT abd pelvis oral and IV con Stat Hospital Course (1) Appendicitis: The patient was admitted and taken to the operating room where an uncomplicated laparoscopic appendectomy was performed. Findings at the time of surgery showed hyperemia edema and firmness of the distal appendix. The proximal appendix and cecum at the base of the appendix were normal. There was no evidence of perforation or abscess. Blood loss was 5 cc. She tolerated the procedure well. On postoperative day #1 she was ambulating and tolerating a diet. Her pain was easily controlled with minimal anesthesia. There is no evidence of wound infection. She was given discharge instructions. Total Time Total Time Spent Total Time Spent (In Minutes): 10 Total Time Includes: Examination of the Patient, Discharge Planning and Medication Reconciliation Discharge Plan Discharge Items Patient Disposition: Home - Self-Care Reason For Visit: APPENDICITIS Discharge Diagnosis: same Condition on Discharge: Good Activity: Per Instructions section Non-emergency contact: Surgeon Call non-emergency contact if: your pain is not controlled, your pain is worsening, you have a fever, your temperature is above 101, your wound has increased redness, your wound has increased drainage and your wound pain has increased Follow-up/Referrals: [facility] [Primary Care Provider] - (UNABLE TO MAKE FOLLOW UP APPT DUE TO COVID CLOSURE.) Diet: Regular Addtl Attending Provider Instructions: Post-Surgical ~Discharge Instructions Activity Recommendations: - lifting limitation: (10 pounds for 2 weeks), - exercise/sex/sports limit: (nonstrenuous for 2 weeks), - driving or machine use limit: (none for 1 week), - Shower/bathe limit: (may shower beginning tomorrow) Diet: - Resume previous diet SPECIAL CARE INSTRUCTIONS: - May shower tomorrow morning. Let water run over area and pat dry. - Leave steri strips on for one week. - Call the surgeon's office with any questions or concerns - - (ex. temperature higher than 101 degrees F, excessive bleeding or pain). MEDICATIONS: - Resume previous medications unless instructed otherwise by your surgeon. - Ibuprofen 600 mg every 6 hours as needed with food - Tylenol 650 mg every 6 hours as needed - Percocet 1 every 4 hours, as needed for moderate to severe pain FOLLOW UP VISIT: - Please call the office to schedule a two week follow-up phone call appointment. Office number . We are limiting office visits due to Coronavirus pandemic. We will review your pathology over the phone with you. Pending Studies at Discharge: Yes (appendix pathology) Stand-Alone Forms: [employer] Controls, Smoking Cessation Medications and DC Order Prescriptions: New oxycodone-acetaminophen [Percocet] 5-325 mg tablet 1 tab PO Q6H PRN (Reason: pain) Qty: 5 RF: 0 Continued drospirenone-ethinyl estradiol [Jasmiel (28)] 3-0.02 mg tablet 1 tab PO DAILY RF: 0 Discharge Orders: Discharge Order (Routine); Ordered 10/09/19 Ordered By: Katina Webster Admission Data Admit Date/Time: 10/08/19 21:21 Attending Provider: Humble Holt Admit Provider: Humble Holt Primary Care Provider: [facility] Other Providers: Humble Holt Other Interventions: Discharge Summary Assessment (RN) Last Done: 10/09/19 09:26 DC Date/Time DO NOT enter until pt leaves facility: 10/09/19 10:00
== END 2019-10-09 10:00 | disposition home or self-care (01) ==
LOC: ED 13:56 → OR 19:10 → 3N 19:10
DX: K35.80 Unspecified acute appendicitis